=== PATIENT | female | born 1970 | race Caucasian/White ===

== ENCOUNTER 2019-04-15 15:19 | Inpatient (IN) | payer BC ==
[~2019-04-15] VITALS: Ht 172.7 cm; Wt 40.4 kg
[2019-04-16 15:00] VITALS: BP 110/52
[2019-04-16] MEDS ORDERED: ACETAMINOPHEN 650 MG/20.3 ML SOLUTION UDCUP PO PRN (16:00)
[2019-04-16] MEDS ORDERED: SODIUM CL IRRIG SOLN BOTTLE 250 ML IRRIG ONE (18:16)
[2019-04-16] MEDS: IVABRADINE HCL 5 MG TABLET GT SCH (18:31)
[2019-04-16] MEDS: DIGOXIN 125 MCG TABLET GT SCH (18:32)
[2019-04-16] MEDS ORDERED: ENOXAPARIN SODIUM 30 MG/0.3 ML PF SYRINGE SQ SCH (21:00)
[2019-04-16] MEDS: SENNOSIDES 8.8 MG/5 ML SYRUP ORAL.SYG GT SCH (21:00)
[2019-04-16] MEDS ORDERED: DOCUSATE SODIUM 100 MG/10 ML LIQUID UDCUP GT SCH (21:00)
[2019-04-16] MEDS ORDERED: FERROUS SULFATE 300 MG/5 ML LIQUID UDCUP GT SCH (21:00)
[2019-04-16] MEDS: ATENOLOL 25 MG TABLET GT SCH (21:19)
[2019-04-16] MEDS: MELATONIN 3 MG TABLET GT PRN (21:19)
[2019-04-16] MEDS: QUEtiapine FUMARATE 25 MG TABLET GT SCH (21:20)
[2019-04-16] MEDS: CHLORHEXIDINE GLUCONATE 0.12% 15 ML UDCUP ORAL RINSE PO SCH (21:25)
[2019-04-16] MEDS: OXYGEN THERAPY IH SCH (21:55)
[2019-04-16 23:15] VITALS: BP 81/44
[2019-04-17 06:24] LABS: BASOPHILS % (AUTO) 0.9 % (0.0-2.0); EOSINOPHILS % (AUTO) 1.5 % (1.0-6.0); HEMATOCRIT 28.6 % (36-46); HEMOGLOBIN 9.1 g/dL (12.0-16.0); LYMPHOCYTES # (AUTO) 0.9 K/uL (1.0-4.8); LYMPHOCYTES % (AUTO) 12.1 % (22.0-44.0); MEAN CORPUSCULAR HEMOGLOBIN 29.6 pg (26.0-34.0); MEAN CORPUSCULAR HGB CONC 31.9 G/dL (31.0-37.0); MEAN CORPUSCULAR VOLUME 93 fL (80-100); MONOCYTES # (AUTO) 0.8 K/uL (0.1-1.0); MONOCYTES % (AUTO) 11.2 % (2.0-9.0); NEUTROPHILS # (AUTO) 5.6 K/uL (1.8-7.7); NEUTROPHILS % (AUTO) 74.3 % (40.0-70.0); PLATELET COUNT (AUTO) 257 K/uL (150-450); RED BLOOD CELL COUNT(AUTO) 3.08 MIL/uL (4.00-5.20); RED CELL DISTRIBUTION WIDTH 14.6 % (11.5-14.5)
[2019-04-17 06:32] VITALS: BP 107/61
[2019-04-17 06:44] LABS: ALANINE AMINOTRANSFERASE 20 U/L (12-78); ALBUMIN 2.7 g/dL (3.4-5.0); ALKALINE PHOSPHATASE 132 U/L (46-116); ASPARTATE AMINOTRANSFERASE 23 U/L (15-37); BILIRUBIN,TOTAL 0.2 mg/dL (0.1-1.0); CALCIUM, TOTAL 9.4 mg/dL (8.8-10.5); CHLORIDE 95 mmol/L (98-107); CREATININE 0.52 mg/dL (0.60-1.30); GLOMERULAR FILTR. RATE CALC > 60 mL/min (>60); GLUCOSE,RANDOM 117 mg/dL (70-110); POTASSIUM 4.6 mmol/L (3.5-5.1); SODIUM SERUM 137 mmol/L (136-145); TOTAL PROTEIN, SERUM 7.4 g/dL (6.4-8.2); UREA NITROGEN, BLOOD 17 mg/dL (7-18)
[2019-04-17 06:53] LABS: ANION GAP -4 mmol/L (8-16); CARBON DIOXIDE 46 mmol/L (22-29)
[2019-04-17 07:29] VITALS: BP 105/52
[2019-04-17 08:00] VITALS: BP 108/53
[2019-04-17] MEDS ORDERED: DOCUSATE SODIUM 100 MG/10 ML LIQUID UDCUP GT PRN (08:30)
[2019-04-17] MEDS ORDERED: ENOXAPARIN SODIUM 30 MG/0.3 ML PF SYRINGE SQ SCH (09:00)
[2019-04-17] MEDS: ATENOLOL 25 MG TABLET GT SCH ×4 (09:00→20:13)
[2019-04-17] MEDS: IVABRADINE HCL 5 MG TABLET GT SCH ×2 (10:17→20:15)
[2019-04-17] MEDS: MULTIVITAMINS WITH MINERALS, THERAPEUTIC 15 ML UDCUP GT SCH (10:18)
[2019-04-17] MEDS: CHLORHEXIDINE GLUCONATE 0.12% 15 ML UDCUP ORAL RINSE PO SCH ×2 (10:18→20:13)
[2019-04-17] MEDS: FERROUS SULFATE 300 MG/5 ML LIQUID UDCUP GT SCH (10:19)
[2019-04-17] MEDS: LANSOPRAZOLE 30 MG SOLUBLE TABLET GT SCH (10:19)
[2019-04-17] MEDS: DIGOXIN 125 MCG TABLET GT SCH (10:20)
[2019-04-17] MEDS: LEVOTHYROXINE SODIUM 88 MCG TABLET GT SCH (10:20)
[2019-04-17] MEDS: OXYGEN THERAPY IH SCH ×2 (10:23→20:15)
[2019-04-17 17:50] VITALS: BP 109/66
[2019-04-17] MEDS: SENNOSIDES 8.8 MG/5 ML SYRUP ORAL.SYG GT SCH (19:25)
[2019-04-17] MEDS: QUEtiapine FUMARATE 25 MG TABLET GT SCH (20:13)
[2019-04-17] MEDS: MELATONIN 3 MG TABLET GT PRN (20:13)
[2019-04-18 07:35] LABS: MAGNESIUM 1.7 mg/dL (1.80-2.40); PHOSPHORUS 4.1 mg/dL (2.5-4.9)
[2019-04-18 08:30] VITALS: BP 110/67
[2019-04-18] MEDS: IVABRADINE HCL 5 MG TABLET GT SCH ×2 (08:48→18:10)
[2019-04-18] MEDS: ATENOLOL 25 MG TABLET GT SCH ×2 (08:50→20:40)
[2019-04-18] MEDS: DIGOXIN 125 MCG TABLET GT SCH (08:50)
[2019-04-18] MEDS: LEVOTHYROXINE SODIUM 88 MCG TABLET GT SCH (08:50)
[2019-04-18] MEDS: FERROUS SULFATE 300 MG/5 ML LIQUID UDCUP GT SCH (08:51)
[2019-04-18] MEDS: CHLORHEXIDINE GLUCONATE 0.12% 15 ML UDCUP ORAL RINSE PO SCH ×2 (08:51→20:39)
[2019-04-18] MEDS: LANSOPRAZOLE 30 MG SOLUBLE TABLET GT SCH (08:51)
[2019-04-18] MEDS: MULTIVITAMINS WITH MINERALS, THERAPEUTIC 15 ML UDCUP GT SCH (08:51)
[2019-04-18] MEDS: OXYGEN THERAPY IH SCH ×2 (08:51→20:38)
[2019-04-18] MEDS: ENOXAPARIN SODIUM 40 MG/0.4 ML PF SYRINGE SQ SCH (08:51)
[2019-04-18] MEDS ORDERED: MAGNESIUM OXIDE 400 MG TABLET PO ONE (10:15)
[2019-04-18] MEDS ORDERED: FERR-89 PO (16:11)
[2019-04-18] MEDS ORDERED: IVAB5TAB PO (16:12)
[2019-04-18] MEDS ORDERED: QUET25TA PO (16:13)
[2019-04-18] MEDS ORDERED: ATEN25TA PO (16:13)
[2019-04-18] MEDS ORDERED: DIGO125T84 PO (16:14)
[2019-04-18] MEDS ORDERED: LEVO88TA4 PO (16:14)
[2019-04-18] MEDS ORDERED: LANS30 PO (16:16)
[2019-04-18] MEDS ORDERED: MULT-1251 PO (16:19)
[2019-04-18 16:34] VITALS: BP 145/61
[2019-04-18] MEDS: MUPIROCIN CALCIUM 2% 22 GM OINTMENT NASAL SCH (20:40)
[2019-04-18] MEDS: QUEtiapine FUMARATE 25 MG TABLET GT SCH (20:41)
[2019-04-18] MEDS: SENNOSIDES 8.8 MG/5 ML SYRUP ORAL.SYG GT SCH (20:45)
[2019-04-18] MEDS: MELATONIN 3 MG TABLET GT PRN (20:50)
[2019-04-18 23:00] VITALS: BP 117/64
[2019-04-19] MEDS: LEVOTHYROXINE SODIUM 88 MCG TABLET GT SCH (08:16)
[2019-04-19] MEDS: MUPIROCIN CALCIUM 2% 22 GM OINTMENT NASAL SCH ×2 (08:16→22:06)
[2019-04-19] MEDS: CHLORHEXIDINE GLUCONATE 0.12% 15 ML UDCUP ORAL RINSE PO SCH ×2 (08:17→22:02)
[2019-04-19] MEDS: IVABRADINE HCL 5 MG TABLET GT SCH ×2 (08:17→17:43)
[2019-04-19] MEDS: DIGOXIN 125 MCG TABLET GT SCH (08:17)
[2019-04-19] MEDS: ATENOLOL 25 MG TABLET GT SCH ×2 (08:17→22:06)
[2019-04-19] MEDS: ENOXAPARIN SODIUM 40 MG/0.4 ML PF SYRINGE SQ SCH (08:17)
[2019-04-19] MEDS: MULTIVITAMINS WITH MINERALS, THERAPEUTIC 15 ML UDCUP GT SCH (08:17)
[2019-04-19] MEDS: OXYGEN THERAPY IH SCH ×2 (08:18→22:07)
[2019-04-19] MEDS ORDERED: FERROUS SULFATE 325 MG EC TABLET PO SCH (09:00)
[2019-04-19] MEDS: LANSOPRAZOLE 30 MG SOLUBLE TABLET GT SCH (09:14)
[2019-04-19 09:30] VITALS: BP 133/77
[2019-04-19] MEDS: FERROUS SULFATE 300 MG/5 ML LIQUID UDCUP PO SCH (13:03)
[2019-04-19 17:02] VITALS: BP 103/54
[2019-04-19] MEDS: SENNOSIDES 8.8 MG/5 ML SYRUP ORAL.SYG GT SCH (21:00)
[2019-04-19] MEDS: MELATONIN 3 MG TABLET GT PRN (22:05)
[2019-04-19] MEDS: QUEtiapine FUMARATE 25 MG TABLET GT SCH (22:06)
[2019-04-20 01:26] VITALS: BP 118/62
[2019-04-20 10:00] VITALS: BP 111/50
[2019-04-20] MEDS: LEVOTHYROXINE SODIUM 88 MCG TABLET GT SCH (10:32)
[2019-04-20] MEDS: LANSOPRAZOLE 30 MG SOLUBLE TABLET GT SCH (10:34)
[2019-04-20] MEDS: FERROUS SULFATE 300 MG/5 ML LIQUID UDCUP PO SCH (10:34)
[2019-04-20] MEDS: ATENOLOL 25 MG TABLET GT SCH ×2 (10:34→20:37)
[2019-04-20] MEDS: MUPIROCIN CALCIUM 2% 22 GM OINTMENT NASAL SCH ×2 (10:35→20:37)
[2019-04-20] MEDS: MULTIVITAMINS WITH MINERALS, THERAPEUTIC 15 ML UDCUP GT SCH (10:35)
[2019-04-20] MEDS: CHLORHEXIDINE GLUCONATE 0.12% 15 ML UDCUP ORAL RINSE PO SCH ×2 (10:35→20:37)
[2019-04-20] MEDS: ENOXAPARIN SODIUM 40 MG/0.4 ML PF SYRINGE SQ SCH (10:36)
[2019-04-20] MEDS: OXYGEN THERAPY IH SCH ×2 (10:36→20:36)
[2019-04-20] MEDS: IVABRADINE HCL 5 MG TABLET GT SCH ×2 (10:36→17:20)
[2019-04-20] MEDS: DIGOXIN 125 MCG TABLET GT SCH (10:36)
[2019-04-20 15:00] VITALS: BP 109/69
[2019-04-20 20:30] VITALS: BP 122/66
[2019-04-20] MEDS: QUEtiapine FUMARATE 25 MG TABLET GT SCH (20:37)
[2019-04-20] MEDS: MELATONIN 3 MG TABLET GT PRN (20:38)
[2019-04-20] MEDS: SENNOSIDES 8.8 MG/5 ML SYRUP ORAL.SYG GT SCH (20:40)
[2019-04-20 23:30] VITALS: BP 88/44
[2019-04-21 02:00] VITALS: BP 100/47
[2019-04-21 08:00] VITALS: BP 123/58
[2019-04-21] MEDS: ENOXAPARIN SODIUM 40 MG/0.4 ML PF SYRINGE SQ SCH (08:55)
[2019-04-21] MEDS: ATENOLOL 25 MG TABLET GT SCH ×2 (08:56→20:23)
[2019-04-21] MEDS: LEVOTHYROXINE SODIUM 88 MCG TABLET GT SCH (08:56)
[2019-04-21] MEDS: OXYGEN THERAPY IH SCH ×2 (08:57→20:19)
[2019-04-21] MEDS: MULTIVITAMINS WITH MINERALS, THERAPEUTIC 15 ML UDCUP GT SCH (08:58)
[2019-04-21] MEDS: MUPIROCIN CALCIUM 2% 22 GM OINTMENT NASAL SCH ×2 (08:58→20:25)
[2019-04-21] MEDS: LANSOPRAZOLE 30 MG SOLUBLE TABLET GT SCH (08:58)
[2019-04-21] MEDS: FERROUS SULFATE 300 MG/5 ML LIQUID UDCUP PO SCH (08:58)
[2019-04-21] MEDS: DIGOXIN 125 MCG TABLET GT SCH (08:58)
[2019-04-21] MEDS: IVABRADINE HCL 5 MG TABLET GT SCH ×2 (08:58→20:24)
[2019-04-21] MEDS: CHLORHEXIDINE GLUCONATE 0.12% 15 ML UDCUP ORAL RINSE PO SCH ×2 (08:59→20:25)
[2019-04-21] MEDS ORDERED: SENNOSIDES 8.8 MG/5 ML SYRUP ORAL.SYG GT PRN (11:00)
[2019-04-21 16:56] VITALS: BP 116/62
[2019-04-21] MEDS: MELATONIN 3 MG TABLET GT PRN (20:23)
[2019-04-21] MEDS: QUEtiapine FUMARATE 25 MG TABLET GT SCH (20:23)
[2019-04-21 23:30] VITALS: BP 110/55
[2019-04-22] MEDS: LEVOTHYROXINE SODIUM 88 MCG TABLET GT SCH (08:53)
[2019-04-22 09:30] VITALS: BP 113/63
[2019-04-22] MEDS: MUPIROCIN CALCIUM 2% 22 GM OINTMENT NASAL SCH ×2 (09:34→20:18)
[2019-04-22] MEDS: OXYGEN THERAPY IH SCH ×2 (09:34→20:19)
[2019-04-22] MEDS: IVABRADINE HCL 5 MG TABLET GT SCH ×2 (09:34→17:16)
[2019-04-22] MEDS: ENOXAPARIN SODIUM 40 MG/0.4 ML PF SYRINGE SQ SCH (09:35)
[2019-04-22] MEDS: FERROUS SULFATE 300 MG/5 ML LIQUID UDCUP PO SCH (09:35)
[2019-04-22] MEDS: CHLORHEXIDINE GLUCONATE 0.12% 15 ML UDCUP ORAL RINSE PO SCH ×2 (09:35→20:18)
[2019-04-22] MEDS: ATENOLOL 25 MG TABLET GT SCH ×2 (09:35→20:17)
[2019-04-22] MEDS: LANSOPRAZOLE 30 MG SOLUBLE TABLET GT SCH (09:35)
[2019-04-22] MEDS: DIGOXIN 125 MCG TABLET GT SCH (09:35)
[2019-04-22] MEDS: MULTIVITAMINS WITH MINERALS, THERAPEUTIC 15 ML UDCUP GT SCH (09:38)
[2019-04-22 17:27] VITALS: BP 113/58
[2019-04-22] MEDS: MELATONIN 3 MG TABLET GT PRN (20:17)
[2019-04-22] MEDS: QUEtiapine FUMARATE 25 MG TABLET GT SCH (20:17)
[2019-04-22 23:00] VITALS: BP 98/61
[2019-04-23] MEDS: LEVOTHYROXINE SODIUM 88 MCG TABLET GT SCH (08:29)
[2019-04-23] MEDS: OXYGEN THERAPY IH SCH ×2 (09:00→20:44)
[2019-04-23] MEDS: ENOXAPARIN SODIUM 40 MG/0.4 ML PF SYRINGE SQ SCH (09:01)
[2019-04-23] MEDS: MUPIROCIN CALCIUM 2% 22 GM OINTMENT NASAL SCH ×2 (09:01→20:45)
[2019-04-23] MEDS: CHLORHEXIDINE GLUCONATE 0.12% 15 ML UDCUP ORAL RINSE PO SCH ×2 (09:01→20:44)
[2019-04-23] MEDS: FERROUS SULFATE 300 MG/5 ML LIQUID UDCUP PO SCH (09:01)
[2019-04-23] MEDS: LANSOPRAZOLE 30 MG SOLUBLE TABLET GT SCH (09:01)
[2019-04-23] MEDS: DIGOXIN 125 MCG TABLET GT SCH (09:02)
[2019-04-23] MEDS: IVABRADINE HCL 5 MG TABLET GT SCH ×2 (09:02→17:59)
[2019-04-23] MEDS: MULTIVITAMINS WITH MINERALS, THERAPEUTIC 15 ML UDCUP GT SCH (09:02)
[2019-04-23] MEDS: ATENOLOL 25 MG TABLET GT SCH ×2 (09:02→20:45)
[2019-04-23 10:07] VITALS: BP 130/59
[2019-04-23 10:58] LABS: CARBON DIOXIDE 47 mmol/L (22-29)
[2019-04-23 11:00] LABS: ALANINE AMINOTRANSFERASE 21 U/L (12-78); ALKALINE PHOSPHATASE 147 U/L (46-116); ANION GAP -3 mmol/L (8-16); ASPARTATE AMINOTRANSFERASE 24 U/L (15-37); BILIRUBIN,TOTAL 0.3 mg/dL (0.1-1.0); CALCIUM, TOTAL 9.5 mg/dL (8.8-10.5); CHLORIDE 93 mmol/L (98-107); FREE T4 (FREE THYROXINE) 1.23 ng/dL (0.76-1.46); GLOMERULAR FILTR. RATE CALC > 60 mL/min (>60); GLUCOSE,RANDOM 151 mg/dL (70-110); POTASSIUM 4.5 mmol/L (3.5-5.1); SODIUM SERUM 137 mmol/L (136-145); THYROID STIMULATING HORMONE 1.58 uIU/mL (0.36-3.74); TOTAL PROTEIN, SERUM 8.8 g/dL (6.4-8.2); UREA NITROGEN, BLOOD 11 mg/dL (7-18)
[2019-04-23 15:00] VITALS: BP 121/66
[2019-04-23] MEDS: QUEtiapine FUMARATE 25 MG TABLET PO SCH (21:13)
[2019-04-23] MEDS ORDERED: MELATONIN 3 MG TABLET PO PRN (21:15)
[2019-04-23 23:00] VITALS: BP 116/61
[2019-04-24] MEDS: LEVOTHYROXINE SODIUM 88 MCG TABLET GT SCH (08:50)
[2019-04-24] MEDS: OXYGEN THERAPY IH SCH ×2 (08:50→20:30)
[2019-04-24] MEDS: MAGNESIUM OXIDE 400 MG TABLET PO SCH (09:04)
[2019-04-24] MEDS: IVABRADINE HCL 5 MG TABLET GT SCH ×2 (09:04→19:43)
[2019-04-24] MEDS: CHLORHEXIDINE GLUCONATE 0.12% 15 ML UDCUP ORAL RINSE PO SCH ×2 (09:04→20:36)
[2019-04-24] MEDS: ENOXAPARIN SODIUM 40 MG/0.4 ML PF SYRINGE SQ SCH (09:04)
[2019-04-24] MEDS: MULTIVITAMINS WITH MINERALS, THERAPEUTIC 15 ML UDCUP GT SCH (09:04)
[2019-04-24] MEDS: ATENOLOL 25 MG TABLET GT SCH ×2 (09:05→20:36)
[2019-04-24] MEDS: LANSOPRAZOLE 30 MG SOLUBLE TABLET GT SCH (09:05)
[2019-04-24] MEDS: DIGOXIN 125 MCG TABLET GT SCH (09:05)
[2019-04-24] MEDS: FERROUS SULFATE 300 MG/5 ML LIQUID UDCUP PO SCH (09:08)
[2019-04-24] MEDS: ACETAMINOPHEN 650 MG/20.3 ML SOLUTION UDCUP GT PRN (09:47)
[2019-04-24 10:27] VITALS: BP 130/61
[2019-04-24] MEDS ORDERED: FUROSEMIDE 20 MG/2 ML VIAL IVP SCH (15:00)
[2019-04-24 16:00] VITALS: BP 119/70
[2019-04-24] MEDS: QUEtiapine FUMARATE 25 MG TABLET PO SCH (20:36)
[2019-04-24] MEDS: MELATONIN 3 MG TABLET PO PRN (20:41)
[2019-04-24] MEDS: 0.9% SODIUM CHLORIDE 10 ML SYRINGE IVP SCH (23:46)
[2019-04-25] VITALS: BP 121/57
[2019-04-25] MEDS: LEVOTHYROXINE SODIUM 88 MCG TABLET GT SCH (08:36)
[2019-04-25] MEDS: OXYGEN THERAPY IH SCH ×2 (08:37→20:20)
[2019-04-25 09:00] VITALS: BP 119/63
[2019-04-25] MEDS: MAGNESIUM OXIDE 400 MG TABLET PO SCH (09:00)
[2019-04-25] MEDS: IVABRADINE HCL 5 MG TABLET GT SCH ×2 (09:00→17:33)
[2019-04-25] MEDS: 0.9% SODIUM CHLORIDE 10 ML SYRINGE IVP SCH (09:00)
[2019-04-25] MEDS: DIGOXIN 125 MCG TABLET GT SCH (09:03)
[2019-04-25] MEDS: ATENOLOL 25 MG TABLET GT SCH ×2 (09:03→20:19)
[2019-04-25] MEDS: LANSOPRAZOLE 30 MG SOLUBLE TABLET GT SCH (09:03)
[2019-04-25] MEDS: ENOXAPARIN SODIUM 40 MG/0.4 ML PF SYRINGE SQ SCH (09:05)
[2019-04-25] MEDS: FERROUS SULFATE 300 MG/5 ML LIQUID UDCUP PO SCH (09:05)
[2019-04-25] MEDS: MULTIVITAMINS WITH MINERALS, THERAPEUTIC 15 ML UDCUP GT SCH (09:06)
[2019-04-25] MEDS: CHLORHEXIDINE GLUCONATE 0.12% 15 ML UDCUP ORAL RINSE PO SCH ×2 (09:06→20:19)
[2019-04-25] MEDS ORDERED: FUROSEMIDE 20 MG/2 ML VIAL IVP ONE (09:30)
[2019-04-25 16:20] VITALS: BP 114/58
[2019-04-25] MEDS: MELATONIN 3 MG TABLET PO PRN (20:19)
[2019-04-25] MEDS: QUEtiapine FUMARATE 25 MG TABLET PO SCH (20:19)
[2019-04-26] VITALS: BP 105/52
[2019-04-26] MEDS: LEVOTHYROXINE SODIUM 88 MCG TABLET GT SCH (07:59)
[2019-04-26 08:00] VITALS: BP 122/70
[2019-04-26] MEDS: DIGOXIN 125 MCG TABLET GT SCH (08:34)
[2019-04-26] MEDS: ATENOLOL 25 MG TABLET GT SCH ×2 (08:34→21:38)
[2019-04-26] MEDS: LANSOPRAZOLE 30 MG SOLUBLE TABLET GT SCH (08:34)
[2019-04-26] MEDS: IVABRADINE HCL 5 MG TABLET GT SCH ×2 (08:34→17:55)
[2019-04-26] MEDS: FUROSEMIDE 20 MG TABLET PO SCH (08:35)
[2019-04-26] MEDS: MULTIVITAMINS WITH MINERALS, THERAPEUTIC 15 ML UDCUP GT SCH (08:45)
[2019-04-26] MEDS: CHLORHEXIDINE GLUCONATE 0.12% 15 ML UDCUP ORAL RINSE PO SCH ×2 (08:45→21:38)
[2019-04-26] MEDS: FERROUS SULFATE 300 MG/5 ML LIQUID UDCUP PO SCH (08:45)
[2019-04-26] MEDS: OXYGEN THERAPY IH SCH ×2 (08:46→21:39)
[2019-04-26] MEDS: ENOXAPARIN SODIUM 40 MG/0.4 ML PF SYRINGE SQ SCH (08:46)
[2019-04-26] MEDS: MAGNESIUM OXIDE 400 MG TABLET PO SCH (08:46)
[2019-04-26 15:34] VITALS: BP 129/64
[2019-04-26] MEDS: MELATONIN 3 MG TABLET PO PRN (21:38)
[2019-04-26] MEDS: QUEtiapine FUMARATE 25 MG TABLET PO SCH (21:38)
[2019-04-27 00:18] VITALS: BP 112/57
[2019-04-27] MEDS: LEVOTHYROXINE SODIUM 88 MCG TABLET GT SCH (09:35)
[2019-04-27 09:47] VITALS: BP 108/58
[2019-04-27] MEDS: IVABRADINE HCL 5 MG TABLET GT SCH ×2 (10:56→17:21)
[2019-04-27] MEDS: LANSOPRAZOLE 30 MG SOLUBLE TABLET GT SCH (10:56)
[2019-04-27] MEDS: MAGNESIUM OXIDE 400 MG TABLET PO SCH (10:56)
[2019-04-27] MEDS: MULTIVITAMINS WITH MINERALS, THERAPEUTIC 15 ML UDCUP GT SCH (10:56)
[2019-04-27] MEDS: CHLORHEXIDINE GLUCONATE 0.12% 15 ML UDCUP ORAL RINSE PO SCH ×2 (10:56→20:01)
[2019-04-27] MEDS: FERROUS SULFATE 300 MG/5 ML LIQUID UDCUP PO SCH (10:56)
[2019-04-27] MEDS: ENOXAPARIN SODIUM 40 MG/0.4 ML PF SYRINGE SQ SCH (10:56)
[2019-04-27] MEDS: FUROSEMIDE 20 MG TABLET PO SCH (10:56)
[2019-04-27] MEDS: DIGOXIN 125 MCG TABLET GT SCH (10:56)
[2019-04-27] MEDS: ATENOLOL 25 MG TABLET GT SCH ×2 (10:56→20:01)
[2019-04-27] MEDS: OXYGEN THERAPY IH SCH ×2 (10:58→20:01)
[2019-04-27 15:38] VITALS: BP 111/57
[2019-04-27] MEDS: QUEtiapine FUMARATE 25 MG TABLET PO SCH (20:00)
[2019-04-27] MEDS: MELATONIN 3 MG TABLET PO PRN (20:01)
[2019-04-27 23:00] VITALS: BP 125/53
[2019-04-28] MEDS: IVABRADINE HCL 5 MG TABLET GT SCH ×2 (08:05→19:17)
[2019-04-28] MEDS: LEVOTHYROXINE SODIUM 88 MCG TABLET GT SCH (08:06)
[2019-04-28] MEDS: OXYGEN THERAPY IH SCH ×2 (08:06→20:35)
[2019-04-28] MEDS: MAGNESIUM OXIDE 400 MG TABLET PO SCH (09:19)
[2019-04-28] MEDS: CHLORHEXIDINE GLUCONATE 0.12% 15 ML UDCUP ORAL RINSE PO SCH ×2 (09:19→20:38)
[2019-04-28] MEDS: FUROSEMIDE 20 MG TABLET PO SCH (09:22)
[2019-04-28] MEDS: MULTIVITAMINS WITH MINERALS, THERAPEUTIC 15 ML UDCUP GT SCH (09:22)
[2019-04-28] MEDS: ENOXAPARIN SODIUM 40 MG/0.4 ML PF SYRINGE SQ SCH (09:22)
[2019-04-28] MEDS: ATENOLOL 25 MG TABLET GT SCH ×2 (09:22→20:38)
[2019-04-28] MEDS: LANSOPRAZOLE 30 MG SOLUBLE TABLET GT SCH (09:22)
[2019-04-28] MEDS: DIGOXIN 125 MCG TABLET GT SCH (09:22)
[2019-04-28] MEDS: FERROUS SULFATE 300 MG/5 ML LIQUID UDCUP PO SCH (09:23)
[2019-04-28 15:30] VITALS: BP 111/50
[2019-04-28] MEDS: MELATONIN 3 MG TABLET PO PRN (20:38)
[2019-04-28] MEDS: QUEtiapine FUMARATE 25 MG TABLET PO SCH (20:38)
[2019-04-28 23:45] VITALS: BP 112/71
[2019-04-29 08:00] VITALS: BP 127/65
[2019-04-29] MEDS: LEVOTHYROXINE SODIUM 88 MCG TABLET GT SCH (08:17)
[2019-04-29] MEDS: ENOXAPARIN SODIUM 40 MG/0.4 ML PF SYRINGE SQ SCH (08:30)
[2019-04-29] MEDS: IVABRADINE HCL 5 MG TABLET GT SCH ×2 (08:30→19:23)
[2019-04-29] MEDS: ATENOLOL 25 MG TABLET GT SCH ×2 (08:31→20:35)
[2019-04-29] MEDS: DIGOXIN 125 MCG TABLET GT SCH (08:31)
[2019-04-29] MEDS: FUROSEMIDE 20 MG TABLET PO SCH (08:31)
[2019-04-29] MEDS: MULTIVITAMINS WITH MINERALS, THERAPEUTIC 15 ML UDCUP GT SCH (08:31)
[2019-04-29] MEDS: CHLORHEXIDINE GLUCONATE 0.12% 15 ML UDCUP ORAL RINSE PO SCH ×2 (08:31→20:31)
[2019-04-29] MEDS: MAGNESIUM OXIDE 400 MG TABLET PO SCH (08:31)
[2019-04-29] MEDS: FERROUS SULFATE 300 MG/5 ML LIQUID UDCUP PO SCH (08:31)
[2019-04-29] MEDS: LANSOPRAZOLE 30 MG SOLUBLE TABLET GT SCH (08:31)
[2019-04-29] MEDS: OXYGEN THERAPY IH SCH ×2 (09:12→20:31)
[2019-04-29 16:22] VITALS: BP 116/70
[2019-04-29 16:54] LABS: ABG BASE EXCESS 16.2 mmol/L (-2.0-3.0); ABG CARBOXYHEMOGLOBIN 0.5 % (0.0-1.5); ABG HCO3 37.4 mmol/L (22.0-26.0); ABG METHEMOGLOBIN 0.3 % (0.0-1.5); ABG OXYGEN SATURATION 99.3 % (95.0-98.0); ABG OXYHEMOGLOBIN 98.5 % (94.0-100.0); ABG PH 7.369 (7.35-7.450); ABG TOTAL HEMOGLOBIN 10.6 G/dL (12.0-18.0); PO2, ARTERIAL BG 166.1 mmHg (84.0-92.0); SOURCE, BLOOD GAS ARTERIAL; TEMPERATURE, FAHRENHEIT, BG 98.6 FAHREN (96.0-98.6)
[2019-04-29 16:55] LABS: ABG PCO2 74 mmHg (35-45); O2 DEVICE,BLOOD GAS CANNULA (ROOM AIR); SITE, BLOOD GAS RT RADIAL
[2019-04-29] MEDS: MELATONIN 3 MG TABLET PO PRN (20:31)
[2019-04-29 23:28] VITALS: BP 121/61
[2019-04-30 08:30] VITALS: BP 115/68
[2019-04-30] MEDS: LEVOTHYROXINE SODIUM 88 MCG TABLET GT SCH (09:10)
[2019-04-30] MEDS: FUROSEMIDE 20 MG TABLET PO SCH (10:19)
[2019-04-30] MEDS: FERROUS SULFATE 300 MG/5 ML LIQUID UDCUP PO SCH (10:19)
[2019-04-30] MEDS: LANSOPRAZOLE 30 MG SOLUBLE TABLET GT SCH (10:19)
[2019-04-30] MEDS: IVABRADINE HCL 5 MG TABLET GT SCH ×2 (10:19→17:54)
[2019-04-30] MEDS: ENOXAPARIN SODIUM 40 MG/0.4 ML PF SYRINGE SQ SCH (10:19)
[2019-04-30] MEDS: DIGOXIN 125 MCG TABLET GT SCH (10:19)
[2019-04-30] MEDS: CHLORHEXIDINE GLUCONATE 0.12% 15 ML UDCUP ORAL RINSE PO SCH ×2 (10:20→20:00)
[2019-04-30] MEDS: ATENOLOL 25 MG TABLET GT SCH ×2 (10:20→20:00)
[2019-04-30] MEDS: OXYGEN THERAPY IH SCH ×2 (10:20→19:59)
[2019-04-30] MEDS: MULTIVITAMINS WITH MINERALS, THERAPEUTIC 15 ML UDCUP GT SCH (10:20)
[2019-04-30] MEDS: MAGNESIUM OXIDE 400 MG TABLET PO SCH (10:23)
[2019-04-30 15:00] VITALS: BP 116/57
[2019-04-30 16:00] VITALS: BP 116/57
[2019-04-30 19:21] LABS: ABG BASE EXCESS 21.5 mmol/L (-2.0-3.0); ABG CARBOXYHEMOGLOBIN 0.2 % (0.0-1.5); ABG HCO3 41.8 mmol/L (22.0-26.0); ABG METHEMOGLOBIN 0.2 % (0.0-1.5); ABG OXYHEMOGLOBIN 68.9 % (94.0-100.0); ABG PCO2 73 mmHg (35-45); ABG PH 7.415 (7.35-7.450); ABG TOTAL HEMOGLOBIN 10.4 G/dL (12.0-18.0); PO2, ARTERIAL BG 33.9 mmHg (84.0-92.0); SITE, BLOOD GAS LFT RADIAL; SOURCE, BLOOD GAS ARTERIAL; TEMPERATURE, FAHRENHEIT, BG 98.6 FAHREN (96.0-98.6)
[2019-04-30 19:22] LABS: ABG A-A DIFF O2 27.9 mmHg (10-20.0); ABG OXYGEN CONTENT 10.1 mL/dL (15.0-23.0); ABG OXYGEN SATURATION 69.2 % (95.0-98.0); O2 DEVICE,BLOOD GAS ROOM AIR (ROOM AIR)
[2019-04-30 23:00] VITALS: BP 104/57
[2019-05-01 07:30] VITALS: BP 122/52
[2019-05-01] MEDS: CHLORHEXIDINE GLUCONATE 0.12% 15 ML UDCUP ORAL RINSE PO SCH ×3 (09:00→21:00)
[2019-05-01] MEDS: IVABRADINE HCL 5 MG TABLET GT SCH ×2 (09:13→19:00)
[2019-05-01] MEDS: DIGOXIN 125 MCG TABLET GT SCH (09:13)
[2019-05-01] MEDS: ATENOLOL 25 MG TABLET GT SCH ×2 (09:13→21:01)
[2019-05-01] MEDS: OXYGEN THERAPY IH SCH ×2 (09:13→21:01)
[2019-05-01] MEDS: LEVOTHYROXINE SODIUM 88 MCG TABLET GT SCH (09:13)
[2019-05-01] MEDS: FUROSEMIDE 20 MG TABLET PO SCH (09:13)
[2019-05-01 09:18] LABS: CALCIUM, TOTAL 9.7 mg/dL (8.8-10.5); CHLORIDE 91 mmol/L (98-107); CREATININE 0.46 mg/dL (0.60-1.30); GLOMERULAR FILTR. RATE CALC > 60 mL/min (>60); GLUCOSE,RANDOM 122 mg/dL (70-110); POTASSIUM 4.4 mmol/L (3.5-5.1); SODIUM SERUM 133 mmol/L (136-145); UREA NITROGEN, BLOOD 11 mg/dL (7-18)
[2019-05-01 09:41] LABS: ANION GAP -8 mmol/L (8-16); CARBON DIOXIDE 50 mmol/L (22-29)
[2019-05-01] MEDS ORDERED: MAGNESIUM OXIDE 400 MG TABLET PO ONE (10:15)
[2019-05-01] MEDS: LANSOPRAZOLE 30 MG SOLUBLE TABLET GT SCH (10:55)
[2019-05-01] MEDS: ENOXAPARIN SODIUM 40 MG/0.4 ML PF SYRINGE SQ SCH (10:55)
[2019-05-01] MEDS: MULTIVITAMINS WITH MINERALS, THERAPEUTIC 15 ML UDCUP GT SCH (10:56)
[2019-05-01] MEDS: FERROUS SULFATE 300 MG/5 ML LIQUID UDCUP PO SCH (10:56)
[2019-05-01] MEDS ORDERED: AcetaZOLAMIDE 500 MG ER CAPSULE PO SCH (11:00)
[2019-05-01] MEDS: AcetaZOLAMIDE 250 MG TABLET PO SCH (11:00)
[2019-05-01] MEDS ORDERED: MELATONIN 3 MG TABLET PO PRN (15:45)
[2019-05-01 18:43] VITALS: BP 128/60
[2019-05-01] MEDS: MELATONIN 3 MG TABLET PO SCH (21:00)
[2019-05-01] MEDS: MAGNESIUM OXIDE 400 MG TABLET PO SCH (21:00)
[2019-05-02] VITALS: BP 114/83
[2019-05-02 08:00] VITALS: BP 124/60
[2019-05-02] MEDS: OXYGEN THERAPY IH SCH ×2 (08:20→20:00)
[2019-05-02] MEDS: LEVOTHYROXINE SODIUM 88 MCG TABLET GT SCH (08:20)
[2019-05-02] MEDS: AcetaZOLAMIDE 250 MG TABLET PO SCH ×2 (09:00→09:03)
[2019-05-02] MEDS: LANSOPRAZOLE 30 MG SOLUBLE TABLET GT SCH (09:03)
[2019-05-02] MEDS: ATENOLOL 25 MG TABLET GT SCH ×2 (09:03→22:33)
[2019-05-02] MEDS: CHLORHEXIDINE GLUCONATE 0.12% 15 ML UDCUP ORAL RINSE PO SCH ×2 (09:04→21:00)
[2019-05-02] MEDS: MULTIVITAMINS WITH MINERALS, THERAPEUTIC 15 ML UDCUP GT SCH (09:04)
[2019-05-02] MEDS: FERROUS SULFATE 300 MG/5 ML LIQUID UDCUP PO SCH (09:04)
[2019-05-02] MEDS: IVABRADINE HCL 5 MG TABLET GT SCH ×2 (09:04→19:56)
[2019-05-02] MEDS: ENOXAPARIN SODIUM 40 MG/0.4 ML PF SYRINGE SQ SCH (09:04)
[2019-05-02] MEDS: DIGOXIN 125 MCG TABLET GT SCH (09:04)
[2019-05-02] MEDS: MAGNESIUM OXIDE 400 MG TABLET PO SCH ×2 (09:04→21:00)
[2019-05-02] MEDS: FUROSEMIDE 20 MG TABLET PO SCH (09:04)
[2019-05-02 21:16] VITALS: BP 135/77
[2019-05-02] MEDS: MELATONIN 3 MG TABLET PO SCH (22:33)
[2019-05-03 05:11] VITALS: BP 108/41
[2019-05-03 08:30] VITALS: BP 111/51
[2019-05-03] MEDS: MULTIVITAMINS WITH MINERALS, THERAPEUTIC 15 ML UDCUP GT SCH (09:56)
[2019-05-03] MEDS: FERROUS SULFATE 300 MG/5 ML LIQUID UDCUP PO SCH (09:57)
[2019-05-03] MEDS: ENOXAPARIN SODIUM 40 MG/0.4 ML PF SYRINGE SQ SCH (09:57)
[2019-05-03] MEDS: MAGNESIUM OXIDE 400 MG TABLET PO SCH ×2 (09:58→21:58)
[2019-05-03] MEDS: IVABRADINE HCL 5 MG TABLET GT SCH ×2 (09:58→17:38)
[2019-05-03] MEDS: LEVOTHYROXINE SODIUM 88 MCG TABLET GT SCH (09:59)
[2019-05-03] MEDS: ATENOLOL 25 MG TABLET GT SCH ×2 (10:00→21:58)
[2019-05-03] MEDS: FUROSEMIDE 20 MG TABLET PO SCH (10:00)
[2019-05-03] MEDS: LANSOPRAZOLE 30 MG SOLUBLE TABLET GT SCH (10:00)
[2019-05-03] MEDS: OXYGEN THERAPY IH SCH ×2 (10:00→21:59)
[2019-05-03] MEDS: AcetaZOLAMIDE 250 MG TABLET PO SCH (10:01)
[2019-05-03] MEDS: DIGOXIN 125 MCG TABLET GT SCH (10:02)
[2019-05-03] MEDS: CHLORHEXIDINE GLUCONATE 0.12% 15 ML UDCUP ORAL RINSE PO SCH ×2 (10:02→21:58)
[2019-05-03 18:31] VITALS: BP 103/51
[2019-05-03] MEDS ORDERED: ONDANSETRON HCL 4 MG TABLET PO PRN (21:30)
[2019-05-03 21:50] VITALS: BP 106/57
[2019-05-03] MEDS: MELATONIN 3 MG TABLET PO SCH (21:58)
[2019-05-03 23:00] VITALS: BP 104/60
[2019-05-04 08:30] VITALS: BP 105/47
[2019-05-04] MEDS: LEVOTHYROXINE SODIUM 88 MCG TABLET GT SCH (08:36)
[2019-05-04] MEDS: IVABRADINE HCL 5 MG TABLET GT SCH ×2 (10:19→18:36)
[2019-05-04] MEDS: DIGOXIN 125 MCG TABLET GT SCH (10:20)
[2019-05-04] MEDS: AcetaZOLAMIDE 250 MG TABLET PO SCH (10:20)
[2019-05-04] MEDS: FUROSEMIDE 20 MG TABLET PO SCH (10:20)
[2019-05-04] MEDS: ATENOLOL 25 MG TABLET GT SCH ×2 (10:20→20:32)
[2019-05-04] MEDS: LANSOPRAZOLE 30 MG SOLUBLE TABLET GT SCH (10:20)
[2019-05-04] MEDS: MAGNESIUM OXIDE 400 MG TABLET PO SCH ×2 (10:20→20:32)
[2019-05-04] MEDS: CHLORHEXIDINE GLUCONATE 0.12% 15 ML UDCUP ORAL RINSE PO SCH ×2 (10:21→20:32)
[2019-05-04] MEDS: MULTIVITAMINS WITH MINERALS, THERAPEUTIC 15 ML UDCUP GT SCH (10:21)
[2019-05-04] MEDS: FERROUS SULFATE 300 MG/5 ML LIQUID UDCUP PO SCH (10:21)
[2019-05-04] MEDS: ENOXAPARIN SODIUM 40 MG/0.4 ML PF SYRINGE SQ SCH (10:21)
[2019-05-04] MEDS: OXYGEN THERAPY IH SCH ×2 (10:26→20:33)
[2019-05-04 15:36] VITALS: BP 102/54
[2019-05-04] MEDS: MELATONIN 3 MG TABLET PO SCH (20:32)
[2019-05-05 02:00] VITALS: BP 106/53
[2019-05-05] MEDS ORDERED: MULT9LIQ7 PO (03:00)
[2019-05-05] MEDS ORDERED: FERSL PO (03:02)
[2019-05-05] MEDS ORDERED: ACET250T27 PO (03:04)
[2019-05-05] MEDS ORDERED: FURO20 PO (03:04)
[2019-05-05] MEDS ORDERED: MAGOX PO (03:04)
[2019-05-05] MEDS ORDERED: MELA3TAB82 PO (03:05)
[2019-05-05 08:00] VITALS: BP 109/45
[2019-05-05] MEDS: LEVOTHYROXINE SODIUM 88 MCG TABLET GT SCH (08:49)
[2019-05-05] MEDS: FERROUS SULFATE 300 MG/5 ML LIQUID UDCUP PO SCH (09:28)
[2019-05-05] MEDS: MAGNESIUM OXIDE 400 MG TABLET PO SCH ×2 (09:28→20:09)
[2019-05-05] MEDS: IVABRADINE HCL 5 MG TABLET GT SCH ×2 (09:29→20:09)
[2019-05-05] MEDS: ENOXAPARIN SODIUM 40 MG/0.4 ML PF SYRINGE SQ SCH (09:29)
[2019-05-05] MEDS: FUROSEMIDE 20 MG TABLET PO SCH (09:30)
[2019-05-05] MEDS: LANSOPRAZOLE 30 MG SOLUBLE TABLET GT SCH (09:30)
[2019-05-05] MEDS: CHLORHEXIDINE GLUCONATE 0.12% 15 ML UDCUP ORAL RINSE PO SCH ×2 (09:30→20:09)
[2019-05-05] MEDS: ATENOLOL 25 MG TABLET GT SCH ×2 (09:31→20:09)
[2019-05-05] MEDS: AcetaZOLAMIDE 250 MG TABLET PO SCH (09:31)
[2019-05-05] MEDS: DIGOXIN 125 MCG TABLET GT SCH (09:31)
[2019-05-05] MEDS: MULTIVITAMINS WITH MINERALS, THERAPEUTIC 15 ML UDCUP GT SCH (09:31)
[2019-05-05] MEDS: OXYGEN THERAPY IH SCH ×2 (09:32→20:09)
[2019-05-05] MEDS ORDERED: SODIUM CL IRRIG SOLN BOTTLE 250 ML IRRIG ONE (11:11)
[2019-05-05 17:25] VITALS: BP 121/56
[2019-05-05] MEDS: MELATONIN 3 MG TABLET PO SCH (20:09)
[2019-05-05 23:00] VITALS: BP 104/56
[2019-05-06 09:00] VITALS: BP 122/54
[2019-05-06] MEDS: LEVOTHYROXINE SODIUM 88 MCG TABLET GT SCH (09:04)
[2019-05-06] MEDS: IVABRADINE HCL 5 MG TABLET GT SCH ×2 (09:06→16:58)
[2019-05-06] MEDS: MAGNESIUM OXIDE 400 MG TABLET PO SCH ×2 (09:07→20:18)
[2019-05-06] MEDS: AcetaZOLAMIDE 250 MG TABLET PO SCH (09:07)
[2019-05-06] MEDS: CHLORHEXIDINE GLUCONATE 0.12% 15 ML UDCUP ORAL RINSE PO SCH ×2 (09:07→20:19)
[2019-05-06] MEDS: LANSOPRAZOLE 30 MG SOLUBLE TABLET GT SCH (09:07)
[2019-05-06] MEDS: MULTIVITAMINS WITH MINERALS, THERAPEUTIC 15 ML UDCUP GT SCH (09:07)
[2019-05-06] MEDS: FERROUS SULFATE 300 MG/5 ML LIQUID UDCUP PO SCH (09:07)
[2019-05-06] MEDS: OXYGEN THERAPY IH SCH ×2 (09:08→20:18)
[2019-05-06] MEDS: DIGOXIN 125 MCG TABLET GT SCH (09:08)
[2019-05-06] MEDS: ATENOLOL 25 MG TABLET GT SCH ×2 (09:08→20:19)
[2019-05-06] MEDS: FUROSEMIDE 20 MG TABLET PO SCH (09:08)
[2019-05-06] MEDS: ENOXAPARIN SODIUM 40 MG/0.4 ML PF SYRINGE SQ SCH (09:08)
[2019-05-06 15:30] VITALS: BP 120/69
[2019-05-06] MEDS: MELATONIN 3 MG TABLET PO SCH (20:19)
[2019-05-07 04:22] VITALS: BP 106/52
[2019-05-07] MEDS: ACETAMINOPHEN 650 MG/20.3 ML SOLUTION UDCUP GT PRN (04:22)
[2019-05-07 08:10] VITALS: BP 131/66
[2019-05-07 08:58] LABS: CALCIUM, TOTAL 9.4 mg/dL (8.8-10.5); CHLORIDE 91 mmol/L (98-107); GLOMERULAR FILTR. RATE CALC > 60 mL/min (>60); GLUCOSE,RANDOM 104 mg/dL (70-110); POTASSIUM 4.2 mmol/L (3.5-5.1); SODIUM SERUM 135 mmol/L (136-145); UREA NITROGEN, BLOOD 14 mg/dL (7-18)
[2019-05-07 09:27] LABS: ANION GAP -3 mmol/L (8-16); CARBON DIOXIDE 47 mmol/L (22-29)
[2019-05-07] MEDS: LEVOTHYROXINE SODIUM 88 MCG TABLET GT SCH (09:48)
[2019-05-07] MEDS: MULTIVITAMINS WITH MINERALS, THERAPEUTIC 15 ML UDCUP GT SCH (09:50)
[2019-05-07] MEDS: IVABRADINE HCL 5 MG TABLET GT SCH ×2 (09:50→17:31)
[2019-05-07] MEDS: MAGNESIUM OXIDE 400 MG TABLET PO SCH ×2 (09:50→20:54)
[2019-05-07] MEDS: ATENOLOL 25 MG TABLET GT SCH ×2 (09:50→20:54)
[2019-05-07] MEDS: ENOXAPARIN SODIUM 40 MG/0.4 ML PF SYRINGE SQ SCH (09:50)
[2019-05-07] MEDS: FERROUS SULFATE 300 MG/5 ML LIQUID UDCUP PO SCH (09:50)
[2019-05-07] MEDS: CHLORHEXIDINE GLUCONATE 0.12% 15 ML UDCUP ORAL RINSE PO SCH ×2 (09:50→20:55)
[2019-05-07] MEDS: FUROSEMIDE 20 MG TABLET PO SCH (09:51)
[2019-05-07] MEDS: DIGOXIN 125 MCG TABLET GT SCH (09:51)
[2019-05-07] MEDS: LANSOPRAZOLE 30 MG SOLUBLE TABLET GT SCH (09:52)
[2019-05-07] MEDS: OXYGEN THERAPY IH SCH ×2 (09:53→20:53)
[2019-05-07 15:30] VITALS: BP 111/59
[2019-05-07 20:52] VITALS: BP 113/59
[2019-05-07] MEDS: MELATONIN 3 MG TABLET PO SCH (20:55)
[2019-05-08 01:45] VITALS: BP 105/51
[2019-05-08 08:30] VITALS: BP 133/64
[2019-05-08] MEDS: OXYGEN THERAPY IH SCH (09:43)
[2019-05-08] MEDS: LEVOTHYROXINE SODIUM 88 MCG TABLET GT SCH (09:43)
[2019-05-08] MEDS: MAGNESIUM OXIDE 400 MG TABLET PO SCH (10:26)
[2019-05-08] MEDS: FERROUS SULFATE 300 MG/5 ML LIQUID UDCUP PO SCH (10:27)
[2019-05-08] MEDS: ATENOLOL 25 MG TABLET GT SCH (10:27)
[2019-05-08] MEDS: IVABRADINE HCL 5 MG TABLET GT SCH (10:27)
[2019-05-08] MEDS: ENOXAPARIN SODIUM 40 MG/0.4 ML PF SYRINGE SQ SCH (10:27)
[2019-05-08] MEDS: CHLORHEXIDINE GLUCONATE 0.12% 15 ML UDCUP ORAL RINSE PO SCH (10:27)
[2019-05-08] MEDS: MULTIVITAMINS WITH MINERALS, THERAPEUTIC 15 ML UDCUP GT SCH (10:27)
[2019-05-08] MEDS: FUROSEMIDE 20 MG TABLET PO SCH (10:27)
[2019-05-08] MEDS: LANSOPRAZOLE 30 MG SOLUBLE TABLET GT SCH (10:27)
[2019-05-08] MEDS: DIGOXIN 125 MCG TABLET GT SCH (10:27)
== END 2019-05-08 15:30 | disposition home health service (06) | DRG 947 ==
LOC: 2WR 04-16 13:55
PROVIDERS: ADMIT Physical Medicine & Rehabilitation; ATTEND Physical Medicine & Rehabilitation
DX: R53.81 Other malaise (principal); E43 Unspecified severe protein-calorie malnutrition; J96.12 Chronic respiratory failure with hypercapnia; E87.0 Hyperosmolality and hypernatremia; I42.9 Cardiomyopathy, unspecified; Z68.1 Body mass index [BMI] 19.9 or less, adult; D64.9 Anemia, unspecified; E03.9 Hypothyroidism, unspecified; E04.1 Nontoxic single thyroid nodule; E83.42 Hypomagnesemia; E87.6 Hypokalemia; I11.0 Hypertensive heart disease with heart failure; I50.9 Heart failure, unspecified; Z82.3 Family history of stroke; Z83.3 Family history of diabetes mellitus; Z90.81 Acquired absence of spleen; Z92.21 Personal history of antineoplastic chemotherapy; Z92.3 Personal history of irradiation; Z93.1 Gastrostomy status; Z93.0 Tracheostomy status
CPT/HCPCS: 36600; 70490; 71250; 82805; 83735; 84100; 84439; 84443; 87081; 92507; 92508; 92526; 92610; 93306; 97110; 97116; 97140; 97150; 97163; 97167; 97530; 97535; 99366; G0238; J1650; J1940